=== PATIENT | male | born 1985 | race Two or more races ===

== ENCOUNTER 2022-12-23 19:49 | Emergency (ER) | payer OTHER ==
[~2022-12-23] VITALS: Ht 188 cm; Wt 79.8 kg
== END 2022-12-23 22:10 | disposition home or self-care (01) ==
LOC: ER 19:49
DX: K29.70 Gastritis, unspecified, without bleeding (principal)

== ENCOUNTER 2023-04-24 03:04 | Emergency (ER) | payer OTHER ==
[~2023-04-24] VITALS: Ht 188 cm; Wt 79.4 kg
[2023-04-24] MEDS ORDERED: BUDESONIDE0.5 MG/2 M IH (06:09)
[2023-04-24] MEDS ORDERED: ZYNCOF 20-400120 ML PO (06:09)
[2023-04-24] MEDS ORDERED: ALBUTEROL2.5 MG/3 M IH (06:09)
[2023-04-24] MEDS ORDERED: SINGULAIR10 MG PO (06:09)
== END 2023-04-24 06:15 ==
LOC: ER 03:04
DX: J40 Bronchitis, not specified as acute or chronic (principal); R53.81 Other malaise